=== PATIENT | female | born 1930 | race Caucasian/White ===

== ENCOUNTER 2018-09-05 12:26 | Inpatient (IN) | payer BC, MEDICAID, MEDICARE ==
[2018-09-05] MEDS ORDERED: Lactated Ringers 1,000 ML IV ONE (12:59)
[2018-09-05] MEDS ORDERED: HYDROmorphone 0.5 MG/0.5 ML Syringe IVPUSH ONE (12:59)
--- NOTE | 2018-09-05 13:53 | CRLCR ---
Indication: Injury and pain Technique: Left hip 2 views Comparison: None Findings: Bones: Alignment is normal. No fractures or bone lesions. 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 Soft tissues: Unremarkable. Impression: No sign of acute injury. Dictated by Kenji Mancilla MD @ Sep 05 2018 1:50PM Signed by Dr. Kenji Mancilla @ Sep 05 2018 1:52PM
--- NOTE | 2018-09-05 13:59 | CRLCR ---
INDICATION: Fall with pain. TECHNIQUE: Three views of the left shoulder. FINDINGS: The bones are demineralized. There are severe degenerative changes of the glenohumeral joint. No definite acute fracture. No destructive or osteolytic lesions. 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 Dictated by Dat Wynn MD @ Sep 05 2018 1:52PM Signed by Dr. Dat Wynn @ Sep 05 2018 1:58PM
--- NOTE | 2018-09-05 14:02 | EDM.PDOC ---
ED HPI GENERAL MEDICAL PROBLEM - General Chief Complaint: General Stated Complaint: FALL VIA NORTH Time Seen by Provider: 09/05/18 13:25 Source of Information: Reports: Patient, EMS, Old Records History Limitations: Reports: No Limitations - History of Present Illness INITIAL COMMENTS - FREE TEXT/NARRATIVE: 88 yo female who lives alone fell as she was getting ready for bed last night and spent the night on the floor. EMS transported after she was found. Complains of L shoulder and L hip pain. No hx of afib reported. Onset: Sudden Onset Date: 09/04/18 Duration: Hour(s):, Constant Location: Reports: Upper Extremity, Left, Lower Extremity, Left Quality: Reports: Ache Severity: Moderate Improves with: Reports: Rest Worsens with: Reports: Movement Context: Reports: Trauma Associated Symptoms: Reports: Weakness Treatments SEA CAPTAIN: Reports: Other (see below) (none) - Related Data Allergies Allergy/AdvReac Type Severity Reaction Status Date / Time No Known Allergies Allergy Verified 09/05/18 12:36 Home Meds: Home Meds Ca Carbonate/Vitamin D3/Vit K [Calcium + D Soft Chewable Tab] 1 tab PO DAILY [History] Omeprazole 40 mg PO DAILY 09/05/18 [History] Oxybutynin [Oxybutynin ER] 5 mg PO DAILY 09/05/18 [History] hydroCHLOROthiazide [Hydrochlorothiazide] 25 mg PO DAILY 09/05/18 [History] traMADol HCl [Tramadol HCl] 50 mg PO TID PRN 09/05/18 [History] Past Medical History Cardiovascular History: Reports: Hypertension Gastrointestinal History: Reports: GERD Genitourinary History: Reports: Urinary Incontinence KITCHEN CHEF History: Reports: Musculoskeletal History: Reports: Back Pain, Chronic, Osteoarthritis, Other ( See Below) Other Musculoskeletal History: osteopenia Social & Family History - Tobacco Use Smoking Status *Q: Never Smoker - Caffeine Use Caffeine Use: Reports: Coffee - Recreational Drug Use Recreational Drug Use: No ED ROS GENERAL - Review of Systems Review Of Systems: See Below Constitutional: Reports: Weakness HEENT: Reports: No Symptoms Respiratory: Reports: No Symptoms Cardiovascular: Reports: No Symptoms Endocrine: Reports: No Symptoms GI/Abdominal: Reports: No Symptoms : Reports: Incontinence Musculoskeletal: Reports: Joint Pain (L shoulder and L hip pain) Skin: Reports: No Symptoms Neurological: Reports: No Symptoms Psychiatric: Reports: No Symptoms ED EXAM, GENERAL - Physical Exam Exam: See Below Exam Limited By: No Limitations General Appearance: Alert, WD/WN, No Apparent Distress Eye Exam: Bilateral Eye: Normal Inspection Ears: Normal External Exam, Normal Canal, Hearing Grossly Normal, Normal TMs Ear Exam: Bilateral Ear: Auricle Normal, Canal Normal, TM normal Nose: Normal Inspection, No Blood Throat/Mouth: Normal Inspection, Normal Lips, Normal Oropharynx, Normal Voice, No Airway Compromise Head: Atraumatic, Normocephalic Neck: Normal Inspection Respiratory/Chest: No Respiratory Distress, Lungs Clear, Normal Breath Sounds, No Accessory Muscle Use Cardiovascular: Regular Rate, Rhythm, No Edema GI/Abdominal: Normal Bowel Sounds, Soft, Non-Tender, No Distention Back Exam: Normal Inspection Extremities: Normal Inspection, Limited Range of Motion (L hip and L shoulder with increased pain with palpation or movement. ). No: Non-Tender, Pedal Edema , Increased Warmth Neurological: Alert, Oriented, CN II-XII Intact, Normal Cognition, No Motor/ Sensory Deficits Psychiatric: Normal Affect, Normal Mood Skin Exam: Warm, Dry, Normal Color, No Rash, Other (minor skin breakdown L side of her abdomen. ) EKG INTERPRETATION EKG Date: 09/05/18 Time: 14:30 Rhythm: A-Fib Rate (Beats/Min): 153 [place]: RAD-Right [place] Deviation P-Wave: Absent QRS: Normal ST-T: Normal QT: Normal Comparison: NA - No Prior EKG Course - Vital Signs Text/Narrative:: Dr. Carmona called @ 1443h Last Recorded V/S: Last Vital Signs Temp 97 C H 09/05/18 14:28 Pulse 136 H 09/05/18 14:28 Resp 19 09/05/18 14:28 BP 101/72 09/05/18 14:28 Pulse Ox 98 09/05/18 14:28 - Orders/Labs/Meds Orders: Active Orders 24 hr Category Date Time Status Cardiac Monitoring [RC] .As Directed Care 09/05/18 14:28 Active EKG Documentation Completion [RC] ASDIRECTED Care 09/05/18 14:27 Active MAGNESIUM [CHEM] Stat Lab 09/05/18 14:29 Ordered Magnesium Sulfate/Water [Magnesium Sulfate 2 GM in Med 09/05/18 14:29 Active Water 50 ML] 2 gm Premix Bag 1 bag IV ONETIME Metoprolol Tartrate [Lopressor] 5 mg Med 09/05/18 14:38 Active Sodium Chloride 0.9% [Normal Saline] 50 ml IV ONETIME EKG 12 Lead [EK] Routine Ther 09/05/18 14:27 Ordered Medication Orders Magnesium Sulfate 2 gm/ Premix 50 mls @ 12.5 mls/hr IV ONETIME ONE Stop: 09/05/18 18:28 Last Admin: 09/05/18 14:37 Dose: 12.5 mls/hr Metoprolol Tartrate 5 mg/ (Sodium Chloride) 55 mls @ 100 mls/hr IV ONETIME ONE Stop: 09/05/18 15:10 Labs: Laboratory Tests 09/05/18 09/05/18 09/05/18 Range/Units 13:03 13:03 13:03 WBC 11.8 H (4.5-11.0) K/uL RBC 4.51 (3.30-5.50) M/uL Hgb 13.1 (12.0-15.0) g/dL Hct 39.3 (36.0-48.0) % MCV 87 (80-98) fL MCH 29 (27-31) pg MCHC 33 (32-36) % Plt Count 179 (150-400) K/uL Sodium 139 L (140-148) mmol/L Potassium 3.6 (3.6-5.2) mmol/L Chloride 100 (100-108) mmol/L Carbon Dioxide 27 (21-32) mmol/L Anion Gap 15.6 H (5.0-14.0) mmol/L BUN 59 H (7-18) mg/dL Creatinine 1.1 H (0.6-1.0) mg/dL Est Cr Clr Drug Dosing 31.20 mL/min Estimated GFR (MDRD) 47 L (>60) Glucose 191 H (74-106) mg/dL Calcium 9.2 (8.5-10.1) mg/dL Total Bilirubin 0.8 (0.2-1.0) mg/dL AST 73 H (15-37) U/L ALT 47 (12-78) U/L Alkaline Phosphatase 89 (46-116) U/L Creatine Kinase 636 H (26-192) U/L Troponin I (0.000-0.056) ng/mL Total Protein 6.9 (6.4-8.2) g/dL Albumin 2.7 L (3.4-5.0) g/dL Globulin 4.2 H (2.3-3.5) g/dL Albumin/Globulin Ratio 0.6 L (1.2-2.2) Urine Color Urine Appearance Urine pH (4.5-8.0) Ur Specific [place] (1.008-1.030) Urine Protein (NEGATIVE) mg/dL Urine Glucose (UA) (NEGATIVE) mg/dL Urine Ketones (NEGATIVE) mg/dL Urine Occult Blood (NEGATIVE) Urine Nitrite (NEGATIVE) Urine Bilirubin (NEGATIVE) Urine Urobilinogen (NORMAL) mg/dL Ur Leukocyte Esterase (NEGATIVE) Urine RBC (0-5) Urine WBC (0-5) Ur Epithelial Cells Amorphous Sediment Urine Bacteria Urine Mucus Urine Other 09/05/18 09/05/18 Range/Units 13:35 13:41 WBC (4.5-11.0) K/uL RBC (3.30-5.50) M/uL Hgb (12.0-15.0) g/dL Hct (36.0-48.0) % MCV (80-98) fL MCH (27-31) pg MCHC (32-36) % Plt Count (150-400) K/uL Sodium (140-148) mmol/L Potassium (3.6-5.2) mmol/L Chloride (100-108) mmol/L Carbon Dioxide (21-32) mmol/L Anion Gap (5.0-14.0) mmol/L BUN (7-18) mg/dL Creatinine (0.6-1.0) mg/dL Est Cr Clr Drug Dosing mL/min Estimated GFR (MDRD) (>60) Glucose (74-106) mg/dL Calcium (8.5-10.1) mg/dL Total Bilirubin (0.2-1.0) mg/dL AST (15-37) U/L ALT (12-78) U/L Alkaline Phosphatase (46-116) U/L Creatine Kinase (26-192) U/L Troponin I 0.021 (0.000-0.056) ng/mL Total Protein (6.4-8.2) g/dL Albumin (3.4-5.0) g/dL Globulin (2.3-3.5) g/dL Albumin/Globulin Ratio (1.2-2.2) Urine Color Yellow Urine Appearance Cloudy Urine pH 5.0 (4.5-8.0) Ur Specific [place] 1.020 (1.008-1.030) Urine Protein Trace (NEGATIVE) mg/dL Urine Glucose (UA) Normal (NEGATIVE) mg/dL Urine Ketones 15 H (NEGATIVE) mg/dL Urine Occult Blood Trace (NEGATIVE) Urine Nitrite Negative (NEGATIVE) Urine Bilirubin Small (NEGATIVE) Urine Urobilinogen Normal (NORMAL) mg/dL Ur Leukocyte Esterase Negative (NEGATIVE) Urine RBC 0-5 (0-5) Urine WBC 0-5 (0-5) Ur Epithelial Cells Few Amorphous Sediment Moderate Urine Bacteria Not seen Urine Mucus Moderate Urine Other Meds: Medications Generic Name Dose Route Start Last Admin Trade Name Freq PRN Reason Stop Dose Admin Magnesium Sulfate 2 gm/ Premix 50 mls @ 12.5 mls/hr 09/05/18 14:29 09/05/18 14:37 IV 09/05/18 18:28 12.5 mls/hr ONETIME ONE Administration Metoprolol Tartrate 5 mg/ 55 mls @ 100 mls/hr 09/05/18 14:38 Sodium Chloride IV 09/05/18 15:10 ONETIME ONE Discontinued Medications Generic Name Dose Route Start Last Admin Trade Name Freq PRN Reason Stop Dose Admin Hydromorphone HCl 0.5 mg 09/05/18 12:59 09/05/18 13:50 Dilaudid IVPUSH 09/05/18 13:00 0.5 mg ONETIME ONE Administration Lactated Ringer's 1,000 mls @ 1,000 mls/hr 09/05/18 12:59 09/05/18 13:49 Ringers, Lactated IV 09/05/18 13:58 1,000 mls/hr BOLUS ONE Administration - Radiology Interpretation Free Text/Narrative:: L shoulder X-ray-neg L hip X-ray-neg Departure - Departure Time of Disposition: 15:00 Disposition: Admitted As Inpatient 65 Condition: Fair Clinical Impression: Mild dehydration, Fall in elderly patient, Paroxysmal atrial fibrillation - Discharge Information *PRESCRIPTION DRUG MONITORING PROGRAM REVIEWED*: No *COPY OF PRESCRIPTION DRUG MONITORING REPORT IN PATIENT CLARK: No Referrals: Jason Marshall MD [Primary Care Provider] - Forms: ED Department Discharge - My Orders Last 24 Hours: My Active Orders 09/05/18 14:27 EKG Documentation Completion [RC] ASDIRECTED EKG 12 Lead [EK] Routine 09/05/18 14:28 Cardiac Monitoring [RC] .As Directed 09/05/18 14:29 MAGNESIUM [CHEM] Stat Magnesium Sulfate/Water [Magnesium Sulfate 2 GM in Water 50 ML] 2 gm Premix Bag 1 bag IV ONETIME 09/05/18 14:38 Metoprolol Tartrate [Lopressor] 5 mg Sodium Chloride 0.9% [Normal Saline] 50 ml IV ONETIME - Assessment/Plan Last 24 Hours: My Active Orders 09/05/18 14:27 EKG Documentation Completion [RC] ASDIRECTED EKG 12 Lead [EK] Routine 09/05/18 14:28 Cardiac Monitoring [RC] .As Directed 09/05/18 14:29 MAGNESIUM [CHEM] Stat Magnesium Sulfate/Water [Magnesium Sulfate 2 GM in Water 50 ML] 2 gm Premix Bag 1 bag IV ONETIME 09/05/18 14:38 Metoprolol Tartrate [Lopressor] 5 mg Sodium Chloride 0.9% [Normal Saline] 50 ml IV ONETIME
[2018-09-05] MEDS ORDERED: Magnesium Sulfate/Water 2 GM in Premix Bag 1 BAG IV ONE ×2 (14:29→15:11)
[2018-09-05] MEDS ORDERED: Metoprolol Tartrate 5 MG in Sodium Chloride 0.9% 50 ML IV ONE (14:38)
[2018-09-05] MEDS ORDERED: Metoprolol Tartrate 5 MG/5 ML SDV IV ONE (15:00)
[2018-09-05] MEDS ORDERED: Diltiazem 125 MG in Sodium Chloride 0.9% 100 ML IV SCH (15:30)
[2018-09-05] MEDS ORDERED: Diltiazem 100 MG in Sodium Chloride 0.9% 100 ML IV SCH (15:30)
--- NOTE | 2018-09-05 15:34 | PCM.HP ---
H&P History of Present Illness - General Date of Service: 09/05/18 Admit Problem/Dx: Admission Diagnosis/Problem Admission Diagnosis/Problem Rhabdomyolysis Source of Information: Patient, Family, Provider History Limitations: Reports: No Limitations - History of Present Illness Initial Comments - Free Text/Narative: Maureen presents to the emergency room today after being found on the floor this morning. She reports that she lost her balance and fell to the floor. She was too weak to get up and spent the night on the floor. Today her chief complaint is shoulder and hip pain on the left side. She endorses moderately severe achy pain in both the left shoulder and left hip joint. She injured both of these while she was falling to the ground last night. She hasn't been able to take anything to help with the pain. Any sort of movement makes the pain worse. She has chronic pain in both of these joints but pain is much worse today than usual. The patient reports that she has been getting fairly around fairly well at home and her niece reports that she lets the dog in and out multiple times during the day and has not had any previous difficulties with falls. Her home care agency has concerns about her safety at home. Family has discussed assisted living the patient has not been interested to date. The patient reports that she has not had recent difficulties with fevers, nausea, or diarrhea. She does report occasional epigastric pain that seems to be associated with food that she blames on an ulcer. She has had some chills but reports this is a long-standing issue which is stable. Her appetite has been okay. [place] does have family that checks on her regularly. In the emergency room she was found to have mild rhabdomyolysis with a CK level greater than 600. During the emergency room evaluation she also went into atrial fibrillation with a rapid ventricular response and heart rate greater than 150. She will be admitted to the hospital for management of both of these issues. - Related Data Allergies/Adverse Reactions: Allergies Allergy/AdvReac Type Severity Reaction Status Date / Time No Known Allergies Allergy Verified 09/05/18 12:36 Home Medications: Home Meds Ca Carbonate/Vitamin D3/Vit K [Calcium + D Soft Chewable Tab] 1 tab PO DAILY [History] Omeprazole 40 mg PO DAILY 09/05/18 [History] Oxybutynin [Oxybutynin ER] 5 mg PO DAILY 09/05/18 [History] hydroCHLOROthiazide [Hydrochlorothiazide] 25 mg PO DAILY 09/05/18 [History] traMADol HCl [Tramadol HCl] 50 mg PO TID PRN 09/05/18 [History] Past Medical History Cardiovascular History: Reports: Hypertension Gastrointestinal History: Reports: GERD Genitourinary History: Reports: Urinary Incontinence [employer] History: Reports: Musculoskeletal History: Reports: Back Pain, Chronic, Osteoarthritis, Other ( See Below) Other Musculoskeletal History: osteopenia Social & Family History - Family History Cardiac: Reports: CAD Endocrine/Metabolic: Reports: Diabetes, type II (brother and sister) - Tobacco Use Smoking Status *Q: Never Smoker - Caffeine Use Caffeine Use: Reports: Coffee - Alcohol Use Alcohol Use History: No - Recreational Drug Use Recreational Drug Use: No H&P Review of Systems - Review of Systems: Review Of Systems: See Below Free Text/Narrative: A complete 12 point review of systems was obtained. Pertinent positives and negatives are noted in the history of present illness. All other systems were reviewed and were negative except as noted. Exam - Exam Exam: See Below - Vital Signs Vital Signs: Last Vital Signs Temp 97 C H 09/05/18 14:28 Pulse 115 H 09/05/18 15:11 Resp 19 09/05/18 15:11 BP 88/41 L 09/05/18 15:11 Pulse Ox 94 L 09/05/18 15:11 Weight: 88.5 kg - Exam Quality Assessment: No: Supplemental Oxygen General: Alert, Oriented, Cooperative, Sedated (mild). No: Mild Distress HEENT: Conjunctiva Clear, Pupils Equal. No: Mucosa Moist & [place] (dry), Scleral Icterus Neck: Supple, Trachea Midline. No: Lymphadenopathy, Thyromegaly Lungs: Clear to Auscultation, Normal Respiratory Effort Cardiovascular: Irregular Rhythm, Tachycardia, Systolic Murmur (soft chitra apex) GI/Abdominal Exam: Normal Bowel Sounds, Soft, No Distention, No Mass, Tender ( mild LUQ) Extremities: No Pedal Edema, Other (Left shoulder moderately tender around joint and deltoid. Left hip tender over greater trochanter and lateral quad muscle). No: Increased Warmth Skin: Warm, Dry. No: Ecchymosis Neuro Extensive - Mental Status: Alert, Nl Response to Commands Neuro Extensive - Motor, Sensory, Reflexes: No: Dysarthria, Abnormal Motor, Tremor Psychiatric: Alert, Normal Affect - Patient Data Lab Results Last 24 hrs: Laboratory Results - last 24 hr 09/05/18 09/05/18 09/05/18 Range/Units 13:03 13:03 13:03 WBC 11.8 H (4.5-11.0) K/uL RBC 4.51 (3.30-5.50) M/uL Hgb 13.1 (12.0-15.0) g/dL Hct 39.3 (36.0-48.0) % MCV 87 (80-98) fL MCH 29 (27-31) pg MCHC 33 (32-36) % Plt Count 179 (150-400) K/uL Sodium 139 L (140-148) mmol/L Potassium 3.6 (3.6-5.2) mmol/L Chloride 100 (100-108) mmol/L Carbon Dioxide 27 (21-32) mmol/L Anion Gap 15.6 H (5.0-14.0) mmol/L BUN 59 H (7-18) mg/dL Creatinine 1.1 H (0.6-1.0) mg/dL Est Cr Clr Drug Dosing 31.20 mL/min Estimated GFR (MDRD) 47 L (>60) Glucose 191 H (74-106) mg/dL Calcium 9.2 (8.5-10.1) mg/dL Magnesium (1.8-2.4) mg/dL Total Bilirubin 0.8 (0.2-1.0) mg/dL AST 73 H (15-37) U/L ALT 47 (12-78) U/L Alkaline Phosphatase 89 (46-116) U/L Creatine Kinase 636 H (26-192) U/L Troponin I (0.000-0.056) ng/mL Total Protein 6.9 (6.4-8.2) g/dL Albumin 2.7 L (3.4-5.0) g/dL Globulin 4.2 H (2.3-3.5) g/dL Albumin/Globulin Ratio 0.6 L (1.2-2.2) TSH, Ultra Sensitive (0.358-3.740) uIU/mL Urine Color Urine Appearance Urine pH (4.5-8.0) Ur Specific [place] (1.008-1.030) Urine Protein (NEGATIVE) mg/dL Urine Glucose (UA) (NEGATIVE) mg/dL Urine Ketones (NEGATIVE) mg/dL Urine Occult Blood (NEGATIVE) Urine Nitrite (NEGATIVE) Urine Bilirubin (NEGATIVE) Urine Urobilinogen (NORMAL) mg/dL Ur Leukocyte Esterase (NEGATIVE) Urine RBC (0-5) Urine WBC (0-5) Ur Epithelial Cells Amorphous Sediment Urine Bacteria Urine Mucus Urine Other 09/05/18 09/05/18 09/05/18 Range/Units 13:35 13:41 14:29 WBC (4.5-11.0) K/uL RBC (3.30-5.50) M/uL Hgb (12.0-15.0) g/dL Hct (36.0-48.0) % MCV (80-98) fL MCH (27-31) pg MCHC (32-36) % Plt Count (150-400) K/uL Sodium (140-148) mmol/L Potassium (3.6-5.2) mmol/L Chloride (100-108) mmol/L Carbon Dioxide (21-32) mmol/L Anion Gap (5.0-14.0) mmol/L BUN (7-18) mg/dL Creatinine (0.6-1.0) mg/dL Est Cr Clr Drug Dosing mL/min Estimated GFR (MDRD) (>60) Glucose (74-106) mg/dL Calcium (8.5-10.1) mg/dL Magnesium 1.9 (1.8-2.4) mg/dL Total Bilirubin (0.2-1.0) mg/dL AST (15-37) U/L ALT (12-78) U/L Alkaline Phosphatase (46-116) U/L Creatine Kinase (26-192) U/L Troponin I 0.021 (0.000-0.056) ng/mL Total Protein (6.4-8.2) g/dL Albumin (3.4-5.0) g/dL Globulin (2.3-3.5) g/dL Albumin/Globulin Ratio (1.2-2.2) TSH, Ultra Sensitive (0.358-3.740) uIU/mL Urine Color Yellow Urine Appearance Cloudy Urine pH 5.0 (4.5-8.0) Ur Specific [place] 1.020 (1.008-1.030) Urine Protein Trace (NEGATIVE) mg/dL Urine Glucose (UA) Normal (NEGATIVE) mg/dL Urine Ketones 15 H (NEGATIVE) mg/dL Urine Occult Blood Trace (NEGATIVE) Urine Nitrite Negative (NEGATIVE) Urine Bilirubin Small (NEGATIVE) Urine Urobilinogen Normal (NORMAL) mg/dL Ur Leukocyte Esterase Negative (NEGATIVE) Urine RBC 0-5 (0-5) Urine WBC 0-5 (0-5) Ur Epithelial Cells Few Amorphous Sediment Moderate Urine Bacteria Not seen Urine Mucus Moderate Urine Other 09/05/18 Range/Units 14:55 WBC (4.5-11.0) K/uL RBC (3.30-5.50) M/uL Hgb (12.0-15.0) g/dL Hct (36.0-48.0) % MCV (80-98) fL MCH (27-31) pg MCHC (32-36) % Plt Count (150-400) K/uL Sodium (140-148) mmol/L Potassium (3.6-5.2) mmol/L Chloride (100-108) mmol/L Carbon Dioxide (21-32) mmol/L Anion Gap (5.0-14.0) mmol/L BUN (7-18) mg/dL Creatinine (0.6-1.0) mg/dL Est Cr Clr Drug Dosing mL/min Estimated GFR (MDRD) (>60) Glucose (74-106) mg/dL Calcium (8.5-10.1) mg/dL Magnesium (1.8-2.4) mg/dL Total Bilirubin (0.2-1.0) mg/dL AST (15-37) U/L ALT (12-78) U/L Alkaline Phosphatase (46-116) U/L Creatine Kinase (26-192) U/L Troponin I (0.000-0.056) ng/mL Total Protein (6.4-8.2) g/dL Albumin (3.4-5.0) g/dL Globulin (2.3-3.5) g/dL Albumin/Globulin Ratio (1.2-2.2) TSH, Ultra Sensitive 4.674 H (0.358-3.740) uIU/mL Urine Color Urine Appearance Urine pH (4.5-8.0) Ur Specific [place] (1.008-1.030) Urine Protein (NEGATIVE) mg/dL Urine Glucose (UA) (NEGATIVE) mg/dL Urine Ketones (NEGATIVE) mg/dL Urine Occult Blood (NEGATIVE) Urine Nitrite (NEGATIVE) Urine Bilirubin (NEGATIVE) Urine Urobilinogen (NORMAL) mg/dL Ur Leukocyte Esterase (NEGATIVE) Urine RBC (0-5) Urine WBC (0-5) Ur Epithelial Cells Amorphous Sediment Urine Bacteria Urine Mucus Urine Other Result Diagrams: 09/05/18 13:03 09/05/18 13:03 Imaging Impressions Last 24 hrs: Left shoulder x-ray - no fracture or dislocation. Severe OA of GH joint Left hip x-ray - images personally reviewed - no fracture or dislocation. Moderately severe OA of hip joint EKG INTERPRETATION EKG Date: 09/05/18 Rhythm: A-Fib Rate (Beats/Min): 153 [place]: Normal P-Wave: Variable QRS: Wide ST-T: Normal QT: Normal *Q Meaningful Use (ADM) - VTE Risk Assess *Q Each Risk Factor Represents 1 Point: Obesity ( BMI > 25 kg/m2) Total Score 1 Point Risk Factors: 1 Each Risk Factor Represents 2 Points: None Total Score 2 Point Risk Factors: 0 Each Risk Factor Represents 3 Points: Age 75 Years or Greater Total Score 3 Point Risk Factors: 3 Each Risk Factor Represents 5 Points: None Total Score 5 Point Risk Factors: 0 Venous Thromboembolism Risk Factor Score *Q: 4 - Problem List (1) Rhabdomyolysis SNOMED Code(s): 784319894 ICD Code: M62.82 - RHABDOMYOLYSIS Status: Acute Current Visit: Yes Qualifiers: Rhabdomyolysis type: traumatic Encounter type: initial encounter Qualified Code(s): T79.6XXA - Traumatic ischemia of muscle, initial encounter (2) Fall in elderly patient SNOMED Code(s): 880795237 ICD Code: R29.6 - REPEATED FALLS Status: Acute Current Visit: Yes (3) Paroxysmal atrial fibrillation SNOMED Code(s): 186850296 ICD Code: I48.0 - PAROXYSMAL ATRIAL FIBRILLATION Status: Acute Current Visit: Yes Problem Details: with RVR (4) CKD (chronic kidney disease), stage III SNOMED Code(s): 414064669 ICD Code: N18.3 - CHRONIC KIDNEY DISEASE, STAGE 3 (MODERATE) Status: Chronic Current Visit: Yes Problem List Initiated/Reviewed/Updated: Yes Orders Last 24hrs: Active Orders 24 hr Category Date Time Status Patient Status Manage Transfer [TRANSFER] Routine ADT 09/05/18 15:21 Ordered Cardiac Monitoring [RC] .As Directed Care 09/05/18 14:28 Active EKG Documentation Completion [RC] ASDIRECTED Care 09/05/18 14:27 Active Diltiazem 125 mg Med 09/05/18 15:30 Active Sodium Chloride 0.9% [Normal Saline] 100 ml IV TITRATE Magnesium Sulfate/Water [Magnesium Sulfate 2 GM in Med 09/05/18 15:11 Active Water 50 ML] 2 gm Premix Bag 1 bag IV ONETIME Resuscitation Status Routine Resus Stat 09/05/18 15:23 Ordered EKG 12 Lead [EK] Routine Ther 09/05/18 14:27 Ordered Medication Orders Magnesium Sulfate 2 gm/ Premix 50 mls @ 12.5 mls/hr IV ONETIME ONE Stop: 09/05/18 19:10 Last Admin: 09/05/18 15:18 Dose: Not Given Diltiazem HCl 125 mg/ Sodium (Chloride) 125 mls @ 5 mls/hr IV TITRATE KIERA; Protocol Assessment/Plan Comment:: ASSESSMENT AND PLAN - Acute traumatic rhabdomyolysis - patient had a fall last night and spent the night on the floor. She is complaining of left shoulder joint and hip joint pain as well as muscle pain surrounding these joints. X-rays were negative for fracture. CK level is only mildly elevated at this time but may rise before it comes down given the duration of her time on the ground. -IV fluids -Pain control -Repeat CK level tonight and in the morning -Hold hydrochlorothiazide Paroxysmal atrial fibrillation with rapid ventricular response - no history of dysrhythmias in the past. Patient has no symptoms at the time of the rapid rate. Troponin level is normal and electrolytes are okay other than a borderline potassium. Metoprolol did help to slow down the rate a little bit. -Diltiazem infusion without bolus given borderline blood pressure -TSH -Supplement potassium -Cardiac monitoring -Echo when available Generalized weakness - sounds like there's been a slow decline. Patient has been resistant to therapies in the past but I believe strongly that she would benefit from subacute rehabilitation and would likely be able to return to her previous living condition with a couple weeks of physical therapy. I suspect slow chronic dehydration may be contributing and I'm planning to hold her hydrochlorothiazide as discussed above. -Physical therapy Stage III chronic kidney disease - GFR likely slightly lower today than usual given her dehydration and rhabdomyolysis. I would expect that her kidney function should improve with some hydration. -Fluids as above and repeat labs in the morning Maintenance issues - - DVT prophylaxis - enoxaparin - GI prophylaxis - PPI - Nutrition - low sodium diet - Nicholson catheter - not indicated CODE STATUS - DNR/DNI - discussed with her niece Admission justification - This patient will be admitted for inpatient services and is medically appropriate meeting medical necessity for inpatient admission as outlined in my documentation. I reasonably expect the patient will require inpatient services that span a period time over 2 midnights. I reasonably expect this patient to be discharged or transferred within 96 hours [facility]. Disposition - I anticipate that she will be discharged to a correction facility for subacute rehabilitation Primary care physician - Dr Joanna Carmona M.D.
[2018-09-05] MEDS ORDERED: Ondansetron 4 MG Tab.DIS PO PRN (16:28)
[2018-09-05] MEDS ORDERED: Polyethylene Glycol 3350 Powder 17 GM Packet PO PRN (16:28)
[2018-09-05] MEDS ORDERED: Ondansetron 4 MG/2 ML SDV IV PRN (16:28)
[2018-09-05] MEDS: Pantoprazole 40 MG Tab.CR PO SCH (17:55)
[2018-09-05] MEDS: Acetaminophen 500 MG Tab PO SCH ×2 (17:55→20:08)
[2018-09-05] MEDS ORDERED: Digoxin 500 MCG/2 ML Amp IVPUSH ONE (18:20)
[2018-09-05] MEDS ORDERED: Sodium Chloride 0.9% 1,000 ML IV SCH ×2 (20:15→22:15)
[2018-09-06] MEDS: traMADol 50 MG Tab PO PRN ×2 (04:34→12:53)
[2018-09-06] MEDS: Pantoprazole 40 MG Tab.CR PO SCH ×2 (08:14→16:48)
[2018-09-06] MEDS: Acetaminophen 500 MG Tab PO SCH ×4 (08:16→21:03)
[2018-09-06] MEDS: Oxybutynin 5 MG Tab PO SCH ×2 (08:16→20:59)
[2018-09-06] MEDS: Enoxaparin 40 MG/0.4 ML Syringe SUBCUT SCH (08:21)
[2018-09-06] MEDS ORDERED: Non-Formulary Medication 1 Each (Oxybutynin [Oxybutynin Er] 5 MG) PO SCH (09:00)
--- NOTE | 2018-09-06 09:00 | PCM.PN ---
- General Info Date of Service: 09/06/18 Subjective Update: overnight the patient had difficulty with hypotension which necessitated discontinuing the diltiazem infusion. She received a dose of digoxin in addition to a fluid bolus and this did help calm down her heart rate for a while. She received a second fluid bolus for persistent hypotension overnight and then spontaneously converted to normal sinus rhythm. She has remained in sinus rhythm since that time. This morning she is not complaining of shoulder or hip pain at rest. When working with physical therapy she was not able to bear weight on her left leg. She reports pain in her heels which she has never experienced before. Her CK level did rise slightly last night and is now down to her baseline level from yesterday and this morning. Functional Status: Reports: Pain Controlled, Tolerating Diet - Review of Systems General: Reports: Weakness Musculoskeletal: Reports: Foot Pain - Patient Data Vitals - Most Recent: Last Vital Signs Temp 36.7 C 09/06/18 05:00 Pulse 68 09/05/18 22:35 Resp 20 09/06/18 06:00 BP 107/42 L 09/06/18 06:00 Pulse Ox 92 L 09/06/18 06:00 Weight - Most Recent: 75.013 kg I&O - Last 24 Hours: Intake & Output 09/05/18 09/06/18 09/06/18 22:59 06:59 14:59 Intake Total 2388 899 Output Total 100 Balance 2288 899 Lab Results Last 24 Hours: Laboratory Results - last 24 hr 09/05/18 09/05/18 09/05/18 Range/Units 13:03 13:03 13:03 WBC 11.8 H (4.5-11.0) K/uL RBC 4.51 (3.30-5.50) M/uL Hgb 13.1 (12.0-15.0) g/dL Hct 39.3 (36.0-48.0) % MCV 87 (80-98) fL MCH 29 (27-31) pg MCHC 33 (32-36) % Plt Count 179 (150-400) K/uL Sodium 139 L (140-148) mmol/L Potassium 3.6 (3.6-5.2) mmol/L Chloride 100 (100-108) mmol/L Carbon Dioxide 27 (21-32) mmol/L Anion Gap 15.6 H (5.0-14.0) mmol/L BUN 59 H (7-18) mg/dL Creatinine 1.1 H (0.6-1.0) mg/dL Est Cr Clr Drug Dosing 31.20 mL/min Estimated GFR (MDRD) 47 L (>60) Glucose 191 H (74-106) mg/dL Calcium 9.2 (8.5-10.1) mg/dL Magnesium (1.8-2.4) mg/dL Total Bilirubin 0.8 (0.2-1.0) mg/dL AST 73 H (15-37) U/L ALT 47 (12-78) U/L Alkaline Phosphatase 89 (46-116) U/L Creatine Kinase 636 H (26-192) U/L Troponin I (0.000-0.056) ng/mL Total Protein 6.9 (6.4-8.2) g/dL Albumin 2.7 L (3.4-5.0) g/dL Globulin 4.2 H (2.3-3.5) g/dL Albumin/Globulin Ratio 0.6 L (1.2-2.2) TSH, Ultra Sensitive (0.358-3.740) uIU/mL Urine Color Urine Appearance Urine pH (4.5-8.0) Ur Specific [place] (1.008-1.030) Urine Protein (NEGATIVE) mg/dL Urine Glucose (UA) (NEGATIVE) mg/dL Urine Ketones (NEGATIVE) mg/dL Urine Occult Blood (NEGATIVE) Urine Nitrite (NEGATIVE) Urine Bilirubin (NEGATIVE) Urine Urobilinogen (NORMAL) mg/dL Ur Leukocyte Esterase (NEGATIVE) Urine RBC (0-5) Urine WBC (0-5) Ur Epithelial Cells Amorphous Sediment Urine Bacteria Urine Mucus Urine Other 09/05/18 09/05/18 09/05/18 Range/Units 13:35 13:41 14:29 WBC (4.5-11.0) K/uL RBC (3.30-5.50) M/uL Hgb (12.0-15.0) g/dL Hct (36.0-48.0) % MCV (80-98) fL MCH (27-31) pg MCHC (32-36) % Plt Count (150-400) K/uL Sodium (140-148) mmol/L Potassium (3.6-5.2) mmol/L Chloride (100-108) mmol/L Carbon Dioxide (21-32) mmol/L Anion Gap (5.0-14.0) mmol/L BUN (7-18) mg/dL Creatinine (0.6-1.0) mg/dL Est Cr Clr Drug Dosing mL/min Estimated GFR (MDRD) (>60) Glucose (74-106) mg/dL Calcium (8.5-10.1) mg/dL Magnesium 1.9 (1.8-2.4) mg/dL Total Bilirubin (0.2-1.0) mg/dL AST (15-37) U/L ALT (12-78) U/L Alkaline Phosphatase (46-116) U/L Creatine Kinase (26-192) U/L Troponin I 0.021 (0.000-0.056) ng/mL Total Protein (6.4-8.2) g/dL Albumin (3.4-5.0) g/dL Globulin (2.3-3.5) g/dL Albumin/Globulin Ratio (1.2-2.2) TSH, Ultra Sensitive (0.358-3.740) uIU/mL Urine Color Yellow Urine Appearance Cloudy Urine pH 5.0 (4.5-8.0) Ur Specific [place] 1.020 (1.008-1.030) Urine Protein Trace (NEGATIVE) mg/dL Urine Glucose (UA) Normal (NEGATIVE) mg/dL Urine Ketones 15 H (NEGATIVE) mg/dL Urine Occult Blood Trace (NEGATIVE) Urine Nitrite Negative (NEGATIVE) Urine Bilirubin Small (NEGATIVE) Urine Urobilinogen Normal (NORMAL) mg/dL Ur Leukocyte Esterase Negative (NEGATIVE) Urine RBC 0-5 (0-5) Urine WBC 0-5 (0-5) Ur Epithelial Cells Few Amorphous Sediment Moderate Urine Bacteria Not seen Urine Mucus Moderate Urine Other 09/05/18 09/05/18 09/06/18 Range/Units 14:55 20:57 04:36 WBC 9.7 (4.5-11.0) K/uL RBC 3.44 (3.30-5.50) M/uL Hgb 9.9 L D (12.0-15.0) g/dL Hct 30.5 L (36.0-48.0) % MCV 89 (80-98) fL MCH 29 (27-31) pg MCHC 33 (32-36) % Plt Count 162 (150-400) K/uL Sodium (140-148) mmol/L Potassium (3.6-5.2) mmol/L Chloride (100-108) mmol/L Carbon Dioxide (21-32) mmol/L Anion Gap (5.0-14.0) mmol/L BUN (7-18) mg/dL Creatinine (0.6-1.0) mg/dL Est Cr Clr Drug Dosing mL/min Estimated GFR (MDRD) (>60) Glucose (74-106) mg/dL Calcium (8.5-10.1) mg/dL Magnesium (1.8-2.4) mg/dL Total Bilirubin (0.2-1.0) mg/dL AST (15-37) U/L ALT (12-78) U/L Alkaline Phosphatase (46-116) U/L Creatine Kinase 795 H (26-192) U/L Troponin I (0.000-0.056) ng/mL Total Protein (6.4-8.2) g/dL Albumin (3.4-5.0) g/dL Globulin (2.3-3.5) g/dL Albumin/Globulin Ratio (1.2-2.2) TSH, Ultra Sensitive 4.674 H (0.358-3.740) uIU/mL Urine Color Urine Appearance Urine pH (4.5-8.0) Ur Specific [place] (1.008-1.030) Urine Protein (NEGATIVE) mg/dL Urine Glucose (UA) (NEGATIVE) mg/dL Urine Ketones (NEGATIVE) mg/dL Urine Occult Blood (NEGATIVE) Urine Nitrite (NEGATIVE) Urine Bilirubin (NEGATIVE) Urine Urobilinogen (NORMAL) mg/dL Ur Leukocyte Esterase (NEGATIVE) Urine RBC (0-5) Urine WBC (0-5) Ur Epithelial Cells Amorphous Sediment Urine Bacteria Urine Mucus Urine Other 09/06/18 Range/Units 04:36 WBC (4.5-11.0) K/uL RBC (3.30-5.50) M/uL Hgb (12.0-15.0) g/dL Hct (36.0-48.0) % MCV (80-98) fL MCH (27-31) pg MCHC (32-36) % Plt Count (150-400) K/uL Sodium 140 (140-148) mmol/L Potassium 3.3 L (3.6-5.2) mmol/L Chloride 107 (100-108) mmol/L Carbon Dioxide 28 (21-32) mmol/L Anion Gap 8.3 (5.0-14.0) mmol/L BUN 51 H (7-18) mg/dL Creatinine 0.8 (0.6-1.0) mg/dL Est Cr Clr Drug Dosing 44.63 mL/min Estimated GFR (MDRD) > 60 (>60) Glucose 112 H (74-106) mg/dL Calcium 7.9 L (8.5-10.1) mg/dL Magnesium 2.0 (1.8-2.4) mg/dL Total Bilirubin (0.2-1.0) mg/dL AST (15-37) U/L ALT (12-78) U/L Alkaline Phosphatase (46-116) U/L Creatine Kinase 683 H (26-192) U/L Troponin I (0.000-0.056) ng/mL Total Protein (6.4-8.2) g/dL Albumin (3.4-5.0) g/dL Globulin (2.3-3.5) g/dL Albumin/Globulin Ratio (1.2-2.2) TSH, Ultra Sensitive (0.358-3.740) uIU/mL Urine Color Urine Appearance Urine pH (4.5-8.0) Ur Specific [place] (1.008-1.030) Urine Protein (NEGATIVE) mg/dL Urine Glucose (UA) (NEGATIVE) mg/dL Urine Ketones (NEGATIVE) mg/dL Urine Occult Blood (NEGATIVE) Urine Nitrite (NEGATIVE) Urine Bilirubin (NEGATIVE) Urine Urobilinogen (NORMAL) mg/dL Ur Leukocyte Esterase (NEGATIVE) Urine RBC (0-5) Urine WBC (0-5) Ur Epithelial Cells Amorphous Sediment Urine Bacteria Urine Mucus Urine Other Med Orders - Current: Current Medications Acetaminophen (Tylenol Extra Strength) 1,000 mg PO TID [facility] Last Admin: 09/06/18 08:16 Dose: 1,000 mg Enoxaparin Sodium (Lovenox) 40 mg SUBCUT DAILY [facility] Last Admin: 09/06/18 08:21 Dose: 40 mg Diltiazem HCl 125 mg/ Sodium (Chloride) 125 mls @ 5 mls/hr IV TITRATE [facility]; Protocol Last Titration: 09/05/18 17:35 Dose: 0 mg/hr, 0 mls/hr Sodium Chloride (Normal Saline) 1,000 mls @ 125 mls/hr IV ASDIRECTED [facility] Last Admin: 09/06/18 00:00 Dose: 125 mls/hr Ondansetron HCl (Zofran Odt) 4 mg PO Q6H PRN PRN Reason: Nausea able to take PO Ondansetron HCl (Zofran) 4 mg IV Q6H PRN PRN Reason: Nausea/Vomiting Oxybutynin Chloride (Oxybutynin) 2.5 mg PO BID [facility] Last Admin: 09/06/18 08:16 Dose: 2.5 mg Pantoprazole Sodium (Protonix) 40 mg PO BIDAC [facility] Last Admin: 09/06/18 08:14 Dose: 40 mg Polyethylene Glycol (Miralax) 17 gm PO DAILY PRN PRN Reason: Constipation Senna/Docusate Sodium (Senna Plus) 1 tab PO BID PRN PRN Reason: Constipation Tramadol HCl (Ultram) 50 mg PO Q6H PRN PRN Reason: Pain Last Admin: 09/06/18 04:34 Dose: 50 mg Discontinued Medications Digoxin (Lanoxin) 125 mcg IVPUSH ONETIME ONE Stop: 09/05/18 18:21 Last Admin: 09/05/18 18:54 Dose: 125 mcg Hydromorphone HCl (Dilaudid) 0.5 mg IVPUSH ONETIME ONE Stop: 09/05/18 13:00 Last Admin: 09/05/18 13:50 Dose: 0.5 mg Lactated Ringer's (Ringers, Lactated) 1,000 mls @ 1,000 mls/hr IV BOLUS ONE Stop: 09/05/18 13:58 Last Admin: 09/05/18 13:49 Dose: 1,000 mls/hr Magnesium Sulfate 2 gm/ Premix 50 mls @ 12.5 mls/hr IV ONETIME ONE Stop: 09/05/18 18:28 Last Admin: 09/05/18 14:37 Dose: 12.5 mls/hr Magnesium Sulfate 2 gm/ Premix 50 mls @ 12.5 mls/hr IV ONETIME ONE Stop: 09/05/18 19:10 Last Admin: 09/05/18 15:18 Dose: Not Given Diltiazem HCl 100 mg/ Sodium (Chloride) 100 mls @ 5 mls/hr IV TITRATE [facility]; Protocol Sodium Chloride (Normal Saline) 1,000 mls @ 500 mls/hr IV ASDIRECTED [facility] Stop: 09/05/18 22:14 Last Admin: 09/05/18 20:38 Dose: 500 mls/hr Sodium Chloride (Normal Saline) 1,000 mls @ 500 mls/hr IV ASDIRECTED [facility] Stop: 09/06/18 00:14 Last Admin: 09/05/18 22:37 Dose: 500 mls/hr Metoprolol Tartrate (Lopressor) 5 mg IV ONETIME ONE Stop: 09/05/18 15:01 Last Admin: 09/05/18 14:52 Dose: 5 mg - Exam Quality Assessment: No: Supplemental Oxygen General: Alert, Oriented, Cooperative, No Acute Distress Neck: Supple Lungs: Clear to Auscultation, Normal Respiratory Effort Cardiovascular: Regular Rate, Regular Rhythm, No Murmurs GI/Abdominal Exam: Soft, No Distention Extremities: No Pedal Edema, Other (both heals are tender to palpation but look normal ). No: Increased Warmth Skin: Warm, Dry Psy/Mental Status: Alert, Normal Affect - Problem List & Annotations (1) Rhabdomyolysis SNOMED Code(s): 204669801 Code(s): M62.82 - RHABDOMYOLYSIS Status: Acute Current Visit: Yes Qualifiers: Rhabdomyolysis type: traumatic Encounter type: initial encounter Qualified Code(s): T79.6XXA - Traumatic ischemia of muscle, initial encounter (2) Fall in elderly patient SNOMED Code(s): 186485638 Code(s): R29.6 - REPEATED FALLS Status: Acute Current Visit: Yes (3) Paroxysmal atrial fibrillation SNOMED Code(s): 102556765 Code(s): I48.0 - PAROXYSMAL ATRIAL FIBRILLATION Status: Acute Current Visit: Yes Annotation/Comment:: with RVR (4) CKD (chronic kidney disease), stage III SNOMED Code(s): 479431923 Code(s): N18.3 - CHRONIC KIDNEY DISEASE, STAGE 3 (MODERATE) Status: Chronic Current Visit: Yes - Problem List Review Problem List Initiated/Reviewed/Updated: Yes - My Orders Last 24 Hours: My Active Orders 09/05/18 15:23 Resuscitation Status Routine 09/05/18 15:30 Diltiazem 125 mg Sodium Chloride 0.9% [Normal Saline] 100 ml IV TITRATE 09/05/18 16:28 Patient Status [ADT] Routine Cardiac Monitoring [RC] Q6H Intake and Output [RC] QSHIFT Notify Provider Vital Signs [RC] ASDIRECTED Oxygen Therapy [RC] PRN Up With Assistance [RC] ASDIRECTED Vital Signs [RC] Q4H Docusate Sodium/Sennosides [Senna Plus] 1 tab PO BID PRN Ondansetron [Zofran ODT] 4 mg PO Q6H PRN Ondansetron [Zofran] 4 mg IV Q6H PRN Polyethylene Glycol 3350 [MiraLAX] 17 gm PO DAILY PRN Sodium Chloride 0.9% [Normal Saline] 1,000 ml IV ASDIRECTED traMADol [Ultram] 50 mg PO Q6H PRN 09/05/18 16:30 Acetaminophen [Tylenol Extra Strength] 1,000 mg PO TID Pantoprazole [ProTONIX] 40 mg PO BIDAC 09/05/18 Dinner 2 Gram Sodium Diet [DIET] 09/06/18 07:00 PT Evaluation and Treatment [CONS] Routine 09/06/18 08:56 Transfer Patient (Change bed) [ADT] Routine 09/06/18 09:00 Enoxaparin [Lovenox] 40 mg SUBCUT DAILY Oxybutynin 2.5 mg PO BID 09/07/18 05:00 BASIC METABOLIC PANEL,BMP [CHEM] Timed CBC W/O DIFF,HEMOGRAM [HEME] Timed (1) CREATINE KINASE,CK [CHEM] Timed 09/07/18 07:00 Echo Comp wo Cont [US] Routine - Plan Plan:: ASSESSMENT AND PLAN - Acute traumatic rhabdomyolysis - CK level did rise overnight but is now back down to baseline. She did receive several boluses overnight. Urine output has been on the low side. -continue IV fluids -Pain control -Repeat CK level in the morning -Hold hydrochlorothiazide Paroxysmal atrial fibrillation with rapid ventricular response - now back in sinus rhythm. -Supplement potassium -Cardiac monitoring -Echo tomorrow Generalized weakness - sounds like there's been a slow decline. Patient has been resistant to therapies in the past but I believe strongly that she would benefit from subacute rehabilitation and would likely be able to return to her previous living condition with a couple weeks of physical therapy. I suspect slow chronic dehydration may be contributing and I'm planning to hold her hydrochlorothiazide as discussed above. -Physical therapy -subacute rehabilitation after hospital stay Stage III chronic kidney disease - GFR slightly better today with fluids overnight. -Fluids as above and repeat labs in the morning Maintenance issues - - DVT prophylaxis - enoxaparin - GI prophylaxis - PPI - Nutrition - low sodium diet Disposition - I anticipate that she will be discharged to a alf facility for subacute rehabilitation Luis Fernando Carmona M.D.
[2018-09-06] MEDS ORDERED: Potassium Chloride 20 MEQ Tab.ER PO ONE (10:00)
--- NOTE | 2018-09-06 11:18 | CRLCT ---
HISTORY: Fall, unable to bear weight. TECHNIQUE: Noncontrast CT of the left hip. COMPARISON: Radiographs 09/05/2018. FINDINGS: There is an acute displaced fracture of the left superior pubic ramus demonstrating approximately 1.3 cm of displacement. Small adjacent hematoma within the left anterior pelvis just superior to the fracture. Mildly angulated acute fractures of the anterior and posterior aspects of the left inferior pubic ramus. Acute left sacral alar fracture with mild anterior cortical deformity. There is no left proximal femoral or acetabular fracture. 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 IMPRESSION: 1. Acute displaced fracture of the left superior pubic ramus with small adjacent soft tissue hematoma. 2. Acute mildly angulated fractures of the anterior and posterior aspects of the left inferior pubic ramus. 3. Acute fracture of the left sacral ala with mild anterior cortical deformity. 4. No left proximal femoral or acetabular fracture. 5. 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 6. Findings discussed with Dr. Carmona on 09/06/2018 at 11:17 hours. Please note that all CT scans at this facility use dose modulation, iterative reconstruction, and/or weight-based dosing when appropriate to reduce radiation dose to as low as reasonably achievable. Dictated by Caleb Love MD @ Sep 06 2018 11:09AM Signed by Dr. Caleb Love @ Sep 06 2018 11:17AM
[2018-09-06] MEDS: Sodium Chloride 0.9% 1,000 ML IV SCH ×3 (16:48→23:55)
[2018-09-07] MEDS: Acetaminophen 500 MG Tab PO SCH ×2 (06:18→08:27)
[2018-09-07] MEDS: Oxybutynin 5 MG Tab PO SCH ×2 (08:27→21:23)
[2018-09-07] MEDS: Pantoprazole 40 MG Tab.CR PO SCH ×2 (08:27→16:51)
[2018-09-07] MEDS: Enoxaparin 40 MG/0.4 ML Syringe SUBCUT SCH (08:27)
[2018-09-07] MEDS: Sodium Chloride 0.9% 1,000 ML IV SCH ×2 (08:48→17:37)
[2018-09-07] MEDS ORDERED: Potassium Chloride 20 MEQ Tab.ER PO ONE (09:30)
[2018-09-07] MEDS ORDERED: Morphine 10 MG/0.5 ML Oral Syringe PO PRN (09:54)
--- NOTE | 2018-09-07 09:58 | PCM.PN ---
- General Info Date of Service: 09/07/18 Subjective Update: there were no acute events overnight. She did not sleep very well last night and sleepiness morning. She does not report any pain in her left shoulder but does report moderately severe pain in her left hip. She is very hesitant to try to even move the hip. She was unable to get out of bed yesterday and overnight. Not much of an appetite. Vital signs have been stable. CK level trending down. Functional Status: Reports: Tolerating Diet. Denies: Pain Controlled - Review of Systems General: Reports: Weakness Musculoskeletal: Reports: Joint Pain (left hip ) - Patient Data Vitals - Most Recent: Last Vital Signs Temp 36.2 C 09/07/18 07:00 Pulse 73 09/07/18 07:00 Resp 16 09/07/18 07:00 BP 147/58 H 09/07/18 07:00 Pulse Ox 89 L 09/07/18 07:00 Weight - Most Recent: 75.013 kg I&O - Last 24 Hours: Intake & Output 09/06/18 09/07/18 09/07/18 22:59 06:59 14:59 Intake Total 863 1723 Balance 863 1723 Lab Results Last 24 Hours: Laboratory Results - last 24 hr 09/07/18 09/07/18 Range/Units 04:50 04:50 WBC 8.5 (4.5-11.0) K/uL RBC 3.29 L (3.30-5.50) M/uL Hgb 9.5 L (12.0-15.0) g/dL Hct 29.0 L (36.0-48.0) % MCV 88 (80-98) fL MCH 29 (27-31) pg MCHC 33 (32-36) % Plt Count 185 (150-400) K/uL Sodium 141 (140-148) mmol/L Potassium 3.6 (3.6-5.2) mmol/L Chloride 110 H (100-108) mmol/L Carbon Dioxide 27 (21-32) mmol/L Anion Gap 7.6 (5.0-14.0) mmol/L BUN 31 H (7-18) mg/dL Creatinine 0.6 (0.6-1.0) mg/dL Est Cr Clr Drug Dosing 59.83 mL/min Estimated GFR (MDRD) > 60 (>60) Glucose 91 (74-106) mg/dL Calcium 7.7 L (8.5-10.1) mg/dL Creatine Kinase 486 H (26-192) U/L Med Orders - Current: Current Medications Acetaminophen (Tylenol Solution) 640 mg PO QID [facility] Enoxaparin Sodium (Lovenox) 40 mg SUBCUT DAILY [facility] Last Admin: 09/07/18 08:27 Dose: 40 mg Sodium Chloride (Normal Saline) 1,000 mls @ 125 mls/hr IV ASDIRECTED [facility] Last Admin: 09/07/18 08:48 Dose: 125 mls/hr Ondansetron HCl (Zofran Odt) 4 mg PO Q6H PRN PRN Reason: Nausea able to take PO Ondansetron HCl (Zofran) 4 mg IV Q6H PRN PRN Reason: Nausea/Vomiting Last Admin: 09/07/18 06:21 Dose: 4 mg Oxybutynin Chloride (Oxybutynin) 2.5 mg PO BID [facility] Last Admin: 09/07/18 08:27 Dose: 2.5 mg Pantoprazole Sodium (Protonix) 40 mg PO BIDAC [facility] Last Admin: 09/07/18 08:27 Dose: 40 mg Polyethylene Glycol (Miralax) 17 gm PO DAILY PRN PRN Reason: Constipation Last Admin: 09/06/18 14:44 Dose: 17 gm Senna/Docusate Sodium (Senna Plus) 1 tab PO BID PRN PRN Reason: Constipation Last Admin: 09/06/18 14:44 Dose: 1 tab Discontinued Medications Acetaminophen (Tylenol Extra Strength) 1,000 mg PO TID [facility] Last Admin: 09/07/18 08:27 Dose: 1,000 mg Digoxin (Lanoxin) 125 mcg IVPUSH ONETIME ONE Stop: 09/05/18 18:21 Last Admin: 09/05/18 18:54 Dose: 125 mcg Hydromorphone HCl (Dilaudid) 0.5 mg IVPUSH ONETIME ONE Stop: 09/05/18 13:00 Last Admin: 09/05/18 13:50 Dose: 0.5 mg Lactated Ringer's (Ringers, Lactated) 1,000 mls @ 1,000 mls/hr IV BOLUS ONE Stop: 09/05/18 13:58 Last Admin: 09/05/18 13:49 Dose: 1,000 mls/hr Magnesium Sulfate 2 gm/ Premix 50 mls @ 12.5 mls/hr IV ONETIME ONE Stop: 09/05/18 18:28 Last Admin: 09/05/18 14:37 Dose: 12.5 mls/hr Magnesium Sulfate 2 gm/ Premix 50 mls @ 12.5 mls/hr IV ONETIME ONE Stop: 09/05/18 19:10 Last Admin: 09/05/18 15:18 Dose: Not Given Diltiazem HCl 100 mg/ Sodium (Chloride) 100 mls @ 5 mls/hr IV TITRATE [facility]; Protocol Diltiazem HCl 125 mg/ Sodium (Chloride) 125 mls @ 5 mls/hr IV TITRATE [facility]; Protocol Last Titration: 09/05/18 17:35 Dose: 0 mg/hr, 0 mls/hr Sodium Chloride (Normal Saline) 1,000 mls @ 500 mls/hr IV ASDIRECTED [facility] Stop: 09/05/18 22:14 Last Admin: 09/05/18 20:38 Dose: 500 mls/hr Sodium Chloride (Normal Saline) 1,000 mls @ 500 mls/hr IV ASDIRECTED [facility] Stop: 09/06/18 00:14 Last Admin: 09/05/18 22:37 Dose: 500 mls/hr Metoprolol Tartrate (Lopressor) 5 mg IV ONETIME ONE Stop: 09/05/18 15:01 Last Admin: 09/05/18 14:52 Dose: 5 mg Potassium Chloride (Klor-Con M20) 40 meq PO ONETIME ONE Stop: 09/06/18 10:01 Last Admin: 09/06/18 10:04 Dose: 40 meq Potassium Chloride (Klor-Con M20) 40 meq PO ONETIME ONE Stop: 09/07/18 09:31 Last Admin: 09/07/18 09:25 Dose: 40 meq Tramadol HCl (Ultram) 50 mg PO Q6H PRN PRN Reason: Pain Last Admin: 09/06/18 12:53 Dose: 50 mg - Exam Quality Assessment: No: Supplemental Oxygen General: Alert, Cooperative, No Acute Distress, Lethargic Lungs: Clear to Auscultation, Normal Respiratory Effort Cardiovascular: Regular Rate, Regular Rhythm GI/Abdominal Exam: Soft, No Distention Extremities: Pedal Edema (trace bilateral ankle edema). No: Increased Warmth Skin: Warm, Dry Psy/Mental Status: Alert, Normal Affect - Problem List & Annotations (1) Rhabdomyolysis SNOMED Code(s): 948399941 Code(s): M62.82 - RHABDOMYOLYSIS Status: Acute Current Visit: Yes Qualifiers: Rhabdomyolysis type: traumatic Encounter type: initial encounter Qualified Code(s): T79.6XXA - Traumatic ischemia of muscle, initial encounter (2) Fall in elderly patient SNOMED Code(s): 925158046 Code(s): R29.6 - REPEATED FALLS Status: Acute Current Visit: Yes (3) Paroxysmal atrial fibrillation SNOMED Code(s): 337406341 Code(s): I48.0 - PAROXYSMAL ATRIAL FIBRILLATION Status: Acute Current Visit: Yes Annotation/Comment:: with RVR (4) CKD (chronic kidney disease), stage III SNOMED Code(s): 871449876 Code(s): N18.3 - CHRONIC KIDNEY DISEASE, STAGE 3 (MODERATE) Status: Chronic Current Visit: Yes - Problem List Review Problem List Initiated/Reviewed/Updated: Yes - My Orders Last 24 Hours: My Active Orders 09/06/18 09:00 Enoxaparin [Lovenox] 40 mg SUBCUT DAILY Oxybutynin 2.5 mg PO BID 09/07/18 07:00 Echo Comp wo Cont [US] Routine 09/07/18 09:54 Morphine [Morphine 10 MG/0.5 ML Oral Syringe] 5 mg PO Q4H PRN 09/07/18 16:00 Acetaminophen [Tylenol Solution] 640 mg PO QID 09/08/18 05:00 BASIC METABOLIC PANEL,BMP [CHEM] Timed CBC W/O DIFF,HEMOGRAM [HEME] Timed (1) CREATINE KINASE,CK [CHEM] Timed - Plan Plan:: ASSESSMENT AND PLAN - Acute traumatic rhabdomyolysis - CK level trending down but not quite yet normalized. -continue IV fluids until this afternoon -Pain control -Repeat CK level in the morning -Hold hydrochlorothiazide Left pelvis fractures - fractures of the superior and inferior pubic rami noted as well as a left sacral fracture. Further complicated by hematoma in the pelvis. Hemoglobin has been drifting down but does still at a safe level. Pain has not been well controlled but she has been declining to take pain medication , even acetaminophen. -Scheduled acetaminophen -As needed tramadol -Physical therapy -Weightbearing as tolerated Paroxysmal atrial fibrillation with rapid ventricular response - she has remained in sinus rhythm. -Supplement potassium -discontinue Cardiac monitoring -follow-up echo Generalized weakness - sounds like there's been a slow decline. Patient has been resistant to therapies in the past but I believe strongly that she would benefit from subacute rehabilitation and would likely be able to return to her previous living condition with a couple weeks of physical therapy. I suspect slow chronic dehydration may be contributing and I'm planning to hold her hydrochlorothiazide as discussed above. -Physical therapy -subacute rehabilitation after hospital stay Stage III chronic kidney disease - GFR stable. -Fluids as above and repeat labs in the morning Maintenance issues - - DVT prophylaxis - enoxaparin - GI prophylaxis - PPI - Nutrition - low sodium diet Disposition - I anticipate that she will be [facility] to a [facility] facility for [facility]acute rehabilitation Luis Fernando Carmona M.D.
[2018-09-07] MEDS: Acetaminophen Soln 650 MG/20.3 ML UD Cup PO SCH ×2 (16:51→21:24)
[2018-09-08] MEDS: Sodium Chloride 0.9% 1,000 ML IV SCH (01:40)
[2018-09-08] MEDS: Acetaminophen Soln 650 MG/20.3 ML UD Cup PO SCH ×3 (08:42→11:07)
[2018-09-08] MEDS: Oxybutynin 5 MG Tab PO SCH (08:43)
[2018-09-08] MEDS: Pantoprazole 40 MG Tab.CR PO SCH (08:43)
[2018-09-08] MEDS: Enoxaparin 40 MG/0.4 ML Syringe SUBCUT SCH (08:44)
[2018-09-08] MEDS ORDERED: Metoprolol Succinate 25 MG Tab.ER PO SCH (10:15)
--- NOTE | 2018-09-08 10:21 | PCM.DCSUM1 ---
Discharge Summary - Hospital Course Brief History: 88-year-old female with history of essential hypertension but otherwise in good health who presented after a fall with trauma to the left shoulder and left hip as well as a prolonged stay on the floor due to weakness. She was admitted for management of left hip pain and acute rhabdomyolysis as well as paroxysmal atrial fibrillation with RVR that started just prior to admission. Diagnosis: Stroke: No - Discharge Data Discharge Date: 09/08/18 Discharge Disposition: DC/Tfer to SNF 03 Condition: Fair - Discharge Diagnosis/Problem(s) (1) Rhabdomyolysis SNOMED Code(s): 999131328 ICD Code: M62.82 - RHABDOMYOLYSIS Status: Acute Current Visit: Yes Qualifiers: Rhabdomyolysis type: traumatic Encounter type: initial encounter Qualified Code(s): T79.6XXA - Traumatic ischemia of muscle, initial encounter (2) Fall in elderly patient SNOMED Code(s): 109169917 ICD Code: R29.6 - REPEATED FALLS Status: Acute Current Visit: Yes (3) Paroxysmal atrial fibrillation SNOMED Code(s): 346619801 ICD Code: I48.0 - PAROXYSMAL ATRIAL FIBRILLATION Status: Acute Current Visit: Yes Problem Details: with RVR (4) CKD (chronic kidney disease), stage III SNOMED Code(s): 435957796 ICD Code: N18.3 - CHRONIC KIDNEY DISEASE, STAGE 3 (MODERATE) Status: Chronic Current Visit: Yes (5) Closed fracture of left pelvis SNOMED Code(s): 56285846 ICD Code: S32.9XXA - FRACTURE OF UNSP PARTS OF LUMBOSACRAL SPINE AND PELVIS, INIT Status: Acute Current Visit: Yes Qualifiers: Encounter type: initial encounter Pelvic bone location: pubis Sublocation of pubis: other portion of pubis Qualified Code(s): S32.592A - Other specified fracture of left pubis, initial encounter for closed fracture - Patient Summary/Data Consults: Consultations 09/06/18 07:00 PT Evaluation and Treatment [CONS] Routine Please Evaluate and Treat. PT Reason for Consult: Strengthening This query below is only for informational purposes and is not editable. Hospital Course: Maureen presented after being found down. She had lost her balance and falling to the floor. She was too weak to get up and spent the night laying on her left side. She was complaining of left shoulder and left hip pain at the time of presentation. X-rays in the emergency room did not show evidence for fracture. Laboratory studies revealed rhabdomyolysis. There is no evidence for infection. She was started on IV fluids and admitted to the hospital for management of rhabdomyolysis as well as some pain control with left hip pain. Overnight following admission her CK level did initially rise and then returned to her baseline before starting to decline. Physical therapy was consult in the morning after admission and she was unable to bear any weight. This prompted a CT scan of the left hip which revealed fractures of both the superior and inferior pubic rami on the left side. A sacral fracture was also noted. No resistant small hematoma noted in the area of 1 fractures as well. Her pain has been fairly well-controlled though she's been a little bit hesitant to bear any weight. She has been declining pain medications and even acetaminophen for the most part. She has been agreeable to a lower dose acetaminophen. Her rhabdomyolysis has resolved. Kidney function has been stable. Vital signs have all been stable. I believe she is safe for discharge to the group home at this time. She will need subacute rehabilitation with her pelvic fracture. There are no weightbearing restrictions at this time. Referrals to physical and occupational therapy have been placed. the patient had been developing progressive weakness prior to admission which I believe is related to chronic dehydration in the setting of diuretic use. I have discontinued her diuretic. She has not had any trouble with lower extremity edema. If she does I would recommend a very low-dose furosemide or possibly even KERA stockings to help with any edema. I would expect her strength should improve fairly quickly now that she is better hydrated. Also noted just prior to her being admitted to the hospital was patient developed atrial fibrillation with a rapid ventricular response. She was asymptomatic at the time that this rhythm started. She received a dose of metoprolol which did slow her down some. A diltiazem infusion was then started. This did help her rate but unfortunately she became hypotensive. The diltiazem infusion was stopped and she received a dose of digoxin. While later, during the evening of admission she converted to normal sinus rhythm. She remained in sinus rhythm for a while. She has had a couple of episodes of very short-lived, less than 5 seconds, runs of a supraventricular tachycardia. She has developed mild to moderate hypertension with systolic blood pressures in the 130-150 range. Have elected to start her on a low-dose beta charles to help with the written episodes of tachycardia to help reduce the risk of recurrence of her atrial fibrillation. - Patient Instructions Diet: Regular Diet as Tolerated Activity: As Tolerated Driving: Do Not Drive Showering/Bathing: May Shower Notify Provider of: Fever, Increased Pain Other/Special Instructions: 1. You were in the hospital for management of rhabdomyolysis related to a fall with a prolonged stay on the ground overnight. Your condition has improved with IV fluid therapy. Your creatine kinase level has normalized. Your kidney function has remained stable throughout the hospital stay. No further treatment is needed from the standpoint. Unfortunately , your faulted resulted in a fracture of the pelvis on the left side. This involved both the superior and inferior rami. No specific surgical intervention is required. You may bare weight as tolerated. I would anticipate this should heal up over the next 4-6 weeks. 2. During the hospital stay you had no episode of paroxysmal atrial fibrillation. This resolved with medical management in the hospital. You have also had a couple of runs of very short- lived tachycardia (fast heart rate). I recommend that we utilize metoprolol to help lower your blood pressure slightly and to reduce the risk of having these fast heart rhythms. You should take metoprolol succinate 25 mg once daily. Stop taking your hydrochlorothiazide as you had been previously. 3. Code status - DNR/DNI. 4. Referral to PT and OT - strengthening the setting of generalized weakness following a fall that resulted in a pelvic fracture on the left. Weightbearing can be as tolerated. 5. Seek medical attention if you fever greater than 101, severe pain in the left pelvis were a few develop sudden onset of shortness of breath or chest pain. - Discharge Plan *PRESCRIPTION DRUG MONITORING PROGRAM REVIEWED*: No *COPY OF PRESCRIPTION DRUG MONITORING REPORT IN PATIENT CLARK: No Prescriptions/Med Rec: Acetaminophen [Tylenol Extra Strength] 1,000 mg PO TID #200 tablet Metoprolol Succinate [Toprol XL] 25 mg PO DAILY #30 tab.er traMADol HCl [Tramadol HCl] 50 mg PO Q4H PRN #90 tablet PRN Reason: Pain Home Medications: Home Meds Ca Carbonate/Vitamin D3/Vit K [Calcium + D Soft Chewable Tab] 1 tab PO DAILY [History] Omeprazole 40 mg PO DAILY 09/05/18 [History] Oxybutynin [Oxybutynin ER] 5 mg PO DAILY 09/05/18 [History] Acetaminophen [Tylenol Extra Strength] 1,000 mg PO TID #200 tablet 09/08/18 [Rx] Metoprolol Succinate [Toprol XL] 25 mg PO DAILY #30 tab.er 09/08/18 [Rx] traMADol HCl [Tramadol HCl] 50 mg PO Q4H PRN #90 tablet 09/08/18 [Rx] Oxygen Therapy Mode: Room Air Patient Handouts: Tramadol tablets, Simple Pelvic Fracture, Adult Referrals: Jason Marshall MD [Primary Care Provider] - (1 week - f/u hospital stay for fall, pelvic fracture, afib) - Discharge Summary/Plan Comment DC Time >30 min.: Yes (45 - new group home discharge) - Patient Data Vitals - Most Recent: Last Vital Signs Temp 36.1 C 09/08/18 07:33 Pulse 80 09/08/18 07:33 Resp 24 H 09/08/18 07:33 BP 157/64 H 09/08/18 07:33 Pulse Ox 93 L 09/08/18 07:33 Weight - Most Recent: 75.013 kg I&O - Last 24 hours: Intake & Output 09/07/18 09/08/18 09/08/18 22:59 06:59 14:59 Intake Total 2091 1440 Balance 2091 1440 Lab Results - Last 24 hrs: Laboratory Results - last 24 hr 09/08/18 09/08/18 Range/Units 03:51 03:51 WBC 9.9 (4.5-11.0) K/uL RBC 3.29 L (3.30-5.50) M/uL Hgb 9.4 L (12.0-15.0) g/dL Hct 29.3 L (36.0-48.0) % MCV 89 (80-98) fL MCH 29 (27-31) pg MCHC 32 (32-36) % Plt Count 234 (150-400) K/uL Sodium 144 (140-148) mmol/L Potassium 4.0 (3.6-5.2) mmol/L Chloride 113 H (100-108) mmol/L Carbon Dioxide 26 (21-32) mmol/L Anion Gap 9.0 (5.0-14.0) mmol/L BUN 23 H (7-18) mg/dL Creatinine 0.7 (0.6-1.0) mg/dL Est Cr Clr Drug Dosing 51.28 mL/min Estimated GFR (MDRD) > 60 (>60) Glucose 94 (74-106) mg/dL Calcium 7.9 L (8.5-10.1) mg/dL Creatine Kinase 297 H (26-192) U/L Med Orders - Current: Current Medications Acetaminophen (Tylenol) 650 mg PO QID [facility] Last Admin: 09/08/18 08:43 Dose: 650 mg Enoxaparin Sodium (Lovenox) 40 mg SUBCUT DAILY [facility] Last Admin: 09/08/18 08:44 Dose: 40 mg Sodium Chloride (Normal Saline) 1,000 mls @ 125 mls/hr IV ASDIRECTED [facility] Last Admin: 09/08/18 01:40 Dose: 125 mls/hr Metoprolol Succinate (Toprol Xl) 25 mg PO DAILY [facility] Morphine Sulfate (Morphine 10 Mg/0.5 Ml Oral Syringe) 5 mg PO Q4H PRN PRN Reason: Pain Ondansetron HCl (Zofran Odt) 4 mg PO Q6H PRN PRN Reason: Nausea able to take PO Ondansetron HCl (Zofran) 4 mg IV Q6H PRN PRN Reason: Nausea/Vomiting Last Admin: 09/07/18 06:21 Dose: 4 mg Oxybutynin Chloride (Oxybutynin) 2.5 mg PO BID [facility] Last Admin: 09/08/18 08:43 Dose: 2.5 mg Pantoprazole Sodium (Protonix) 40 mg PO BIDAC [facility] Last Admin: 09/08/18 08:43 Dose: 40 mg Polyethylene Glycol (Miralax) 17 gm PO DAILY PRN PRN Reason: Constipation Last Admin: 09/06/18 14:44 Dose: 17 gm Senna/Docusate Sodium (Senna Plus) 1 tab PO BID PRN PRN Reason: Constipation Last Admin: 09/06/18 14:44 Dose: 1 tab Discontinued Medications Acetaminophen (Tylenol Extra Strength) 1,000 mg PO TID [facility] Last Admin: 09/07/18 08:27 Dose: 1,000 mg Digoxin (Lanoxin) 125 mcg IVPUSH ONETIME ONE Stop: 09/05/18 18:21 Last Admin: 09/05/18 18:54 Dose: 125 mcg Hydromorphone HCl (Dilaudid) 0.5 mg IVPUSH ONETIME ONE Stop: 09/05/18 13:00 Last Admin: 09/05/18 13:50 Dose: 0.5 mg Lactated Ringer's (Ringers, Lactated) 1,000 mls @ 1,000 mls/hr IV BOLUS ONE Stop: 09/05/18 13:58 Last Admin: 09/05/18 13:49 Dose: 1,000 mls/hr Magnesium Sulfate 2 gm/ Premix 50 mls @ 12.5 mls/hr IV ONETIME ONE Stop: 09/05/18 18:28 Last Admin: 09/05/18 14:37 Dose: 12.5 mls/hr Magnesium Sulfate 2 gm/ Premix 50 mls @ 12.5 mls/hr IV ONETIME ONE Stop: 09/05/18 19:10 Last Admin: 09/05/18 15:18 Dose: Not Given Diltiazem HCl 100 mg/ Sodium (Chloride) 100 mls @ 5 mls/hr IV TITRATE KIERA; Protocol Diltiazem HCl 125 mg/ Sodium (Chloride) 125 mls @ 5 mls/hr IV TITRATE KIERA; Protocol Last Titration: 09/05/18 17:35 Dose: 0 mg/hr, 0 mls/hr Sodium Chloride (Normal Saline) 1,000 mls @ 500 mls/hr IV ASDIRECTED KIREA Stop: 09/05/18 22:14 Last Admin: 09/05/18 20:38 Dose: 500 mls/hr Sodium Chloride (Normal Saline) 1,000 mls @ 500 mls/hr IV ASDIRECTED KIERA Stop: 09/06/18 00:14 Last Admin: 09/05/18 22:37 Dose: 500 mls/hr Metoprolol Tartrate (Lopressor) 5 mg IV ONETIME ONE Stop: 09/05/18 15:01 Last Admin: 09/05/18 14:52 Dose: 5 mg Potassium Chloride (Klor-Con M20) 40 meq PO ONETIME ONE Stop: 09/06/18 10:01 Last Admin: 09/06/18 10:04 Dose: 40 meq Potassium Chloride (Klor-Con M20) 40 meq PO ONETIME ONE Stop: 09/07/18 09:31 Last Admin: 09/07/18 09:25 Dose: 40 meq Tramadol HCl (Ultram) 50 mg PO Q6H PRN PRN Reason: Pain Last Admin: 09/06/18 12:53 Dose: 50 mg - Exam Quality Assessment: Denies: Supplemental Oxygen General: Reports: Alert, Oriented, Cooperative, No Acute Distress Lungs: Reports: Normal Respiratory Effort GI/Abdominal Exam: Soft, No Distention Extremities: No Pedal Edema Skin: Reports: Warm, Dry Psy/Mental Status: Reports: Alert, Normal Affect
== END 2018-09-08 12:20 | DRG 965 ==
LOC: JP.ED 12:26 → JP.ICU 15:21 → JP.MS 09-06 08:56
PROVIDERS: ADMIT Internal Medicine; ATTEND Internal Medicine
DX: T79.6XXA Traumatic ischemia of muscle, initial encounter (principal); S32.592A Other specified fracture of left pubis, initial encounter for closed fracture; S32.10XA Unspecified fracture of sacrum, initial encounter for closed fracture; W19.XXXA Unspecified fall, initial encounter; S30.0XXA Contusion of lower back and pelvis, initial encounter; Y92.009 Unspecified place in unspecified non-institutional (private) residence as the place of occurrence of the external cause; M25.512 Pain in left shoulder; M25.552 Pain in left hip; E86.0 Dehydration; I12.9 Hypertensive chronic kidney disease with stage 1 through stage 4 chronic kidney disease, or unspecified chronic kidney disease; Y93.89 Activity, other specified; N18.3 Chronic kidney disease, stage 3 (moderate); R32 Unspecified urinary incontinence; I48.0 Paroxysmal atrial fibrillation; I95.9 Hypotension, unspecified; R53.1 Weakness; M54.9 Dorsalgia, unspecified; G89.29 Other chronic pain; M19.90 Unspecified osteoarthritis, unspecified site
CPT/HCPCS: 36415; 73030; 73502; 80053; 81001; 82550; 83735; 84443; 84484; 85027; 93005; 93010; 96361; 96365; 96375; 99285 ×2; J1170; J3475; J3490; J7120; 73700-LT; 80048; 93306; 96366; 96368; 97110-GP; 97162-GP; 97530-GP; A9270-GY; J1160; J1650; J2405; J7030